=== PATIENT | female | born 1960 | race Caucasian/White ===

== ENCOUNTER 2016-07-13 07:56 | Emergency (ER) | payer OTHER ==
[~2016-07-13] VITALS: Ht 157.5 cm; Wt 65.0 kg
[~2016-07-13 07:56] MED LIST: BECL8.7A INH
[2016-07-13 08:00] VITALS: Ht 157.5 cm; Wt 65.0 kg
[2016-07-13] MEDS ORDERED: KETOROLAC 30 MG INJ IM STA (08:24)
--- NOTE | 2016-07-13 08:59 | RADRPT ---
PROCEDURE: XR right hip. CLINICAL INDICATION: Hip pain TECHNIQUE: AP and lateral views available for review. COMPARISON: Pelvis 05/19/2014 FINDINGS: The osseous structures are normal in mineralization, architecture and alignment. No fractures are i dentified. No osseous lesions are identified. The joints are unremarkable. There is an 8 x 4 mm c alcification lateral to the greater trochanter (dystrophic/calcific bursitis). IMPRESSION: 8 x 4 mm calcification lateral to the greater trochanter (dystrophic calcification/calcific bursitis ) Otherwise unremarkable examination RPTAT: HGDB .Giovany Dominguez MD, Date Time Electronically viewed and signed by .Giovany Dominguez MD, on 07/13/2016 08:58 .B/
--- NOTE | 2016-07-13 10:11 | ERD ---
ER Documentation Chief Complaint Date/Time DATE: 07/13/16 TIME: 10:05 Chief Complaint SEVERE LEG CRAMPS STARTED THIS AM FROM LEFT HIP DOWN HPI This is a 56-year-old female presenting to the emergency department for left hip pain starting today. Patient states she has tenderness to left hip and left thigh area. No redness, warmth, laceration or ecchymosis. Patient states she was lifting heavy boxes 2 days ago but did not notice pain until today. No fevers or chills. Did not take any medications at home. ROS All systems reviewed and are negative except as per history of present illness. Medications Home Meds Active Scripts Hydrocodone/Acetaminophen (Soper 5-325 Tablet) 1 Each Tablet, 1 TAB PO Q6H Y for PAIN, #7 TAB Prov:MATHIEU PEREZ NP 07/13/16 Ibuprofen* (Motrin*) 600 Mg Tab, 600 MG PO Q6, #20 TAB Prov:MATHIEU PEREZ NP 07/13/16 Reported Medications Beclomethasone Dip* (Qvar 40*) 7.3 Gm Inha, 1 PUFF INH BID, INH 05/19/14 Allergies Allergies: Coded Allergies: Penicillins (Verified Allergy, Unknown, 07/13/16) PMhx/Soc History of Surgery: Yes (BTL) Anesthesia Reaction: No Hx Neurological Disorder: No Hx Respiratory Disorders: Yes (ASTHMA) Hx Cardiac Disorders: Yes (hypotension) Hx Psychiatric Problems: No Hx Miscellaneous Medical Probl: No Hx Alcohol Use: No Hx Substance Use: No Hx Tobacco Use: No Smoking Status: Never smoker Physical Exam Vitals Vital Signs Date Time Temp Pulse Resp B/P Pulse Ox O2 Delivery O2 Flow Rate FiO2 07/13/16 08:00 98.0 89 18 111/55 98 Physical Exam Const: No acute distress, alert Head: Atraumatic Eyes: Normal Conjunctiva ENT: Normal External Ears, Nose and Mouth. Neck: Full range of motion..~ No meningismus. Resp: Clear to auscultation bilaterally Cardio: Regular rate and rhythm, no murmurs Abd: Soft, non tender, non distended. Normal bowel sounds Skin: No petechiae or rashes Back: No midline or flank tenderness Ext: Tenderness to left greater trochanter, negative left straight leg raise Neur: Awake and alert Psych: Normal Mood and Affect Results 24 hrs Current Medications Medications (Trade) Dose Ordered Sig/Yumiko Route PRN Reason Start Time Stop Time Status Last Admin Dose Admin Ketorolac Tromethamine (Toradol) 30 mg ONCE STAT IM 07/13/16 08:24 07/13/16 08:25 DC 07/13/16 08:33 Acetaminophen/ Hydrocodone Bitart (Soper (5/325)) 1 tab ONCE ONCE PO 07/13/16 11:00 07/13/16 11:00 DC 07/13/16 10:38 Procedures/MDM Patient: SHILPA LAND : 1960 Age: 56 Sex: F MR #: [id number] DOS: 07/13/16 0824 Ordering MD: MATHIEU PEREZ NP Location: [facility] Room/Bed: PROCEDURE: XR right hip. CLINICAL INDICATION: Hip pain TECHNIQUE: AP and lateral views available for review. COMPARISON: Pelvis 05/19/2014 FINDINGS: The osseous structures are normal in mineralization, architecture and alignment. No fractures are identified. No osseous lesions are identified. The joints are unremarkable. There is an 8 x 4 mm calcification lateral to the greater trochanter (dystrophic/calcific bursitis). IMPRESSION: 8 x 4 mm calcification lateral to the greater trochanter (dystrophic calcification/calcific bursitis) Otherwise unremarkable examination MDM: 56-year-old female presents emergency department for left hip pain that started today. Patient was lifting heavy boxes 2 days ago and states she noticed pain today. No fevers or chills. Area is without erythema, warmth, laceration or drainage. X-ray left hip reviewed by radiologist as 8 x 4 mm calcification lateral to the greater trochanter otherwise unremarkable. Patient given Toradol while in the ED. Upon reassessment, patient states pain continues. Consulted Dr. Quarles who also examined patient and patient's xrays. We agree that patient is appropriate for outpatient management. Differential diagnosis includes but not limited to trochanteric bursitis, osteoarthritis, rheumatoid arthritis, muscle strain or sprain. Low suspicion for acute dislocation or fracture. Patient is appropriate for outpatient management and will be given prescription for ibuprofen and Soper. Instructed patient to follow-up with primary care provider or orthopedic physician in the next 2-3 days for reassessment. Return to ED for any high fever, chest pain, difficulty breathing, shortness breath, wheezing, vomiting, diarrhea, abdominal pain or any new or worsening symptoms. Patient verbalizes understanding. All questions answered at discharge. Finnish translation used during this encounter. Departure Diagnosis: Primary Impression: Bursitis Bursitis location: hip Hip bursitis location: unspecified Laterality: left Qualified Code: M70.72 - Bursitis of left hip, unspecified bursa Condition: MATHIEU Johnston NP Jul 13, 2016 10:11
[2016-07-13] MEDS ORDERED: IBUP-1542 PO (10:12)
[2016-07-13] MEDS ORDERED: HYDR-906 PO (10:12)
[2016-07-13] MEDS ORDERED: HYDROCODONE/APAP (5/325) TAB PO ONE (11:00)
== END 2016-07-13 10:46 | disposition home or self-care (01) ==
LOC: FTE 07:56
DX: M70.72 Other bursitis of hip, left hip (principal); J45.909 Unspecified asthma, uncomplicated; Y93.89 Activity, other specified
CPT/HCPCS: 73510; J1885; Z7610; 96372

== ENCOUNTER 2016-12-05 19:03 | Emergency (ER) | payer OTHER ==
[~2016-12-05] VITALS: Ht 162.6 cm; Wt 62.0 kg
[~2016-12-05 19:03] MED LIST changes: +HYDR-906 PO; +IBUP-1542 PO
[2016-12-05 19:11] VITALS: Ht 162.6 cm; Wt 62.0 kg
--- NOTE | 2016-12-05 20:55 | ERD ---
ER Documentation Chief Complaint Chief Complaint right thumb abscess HPI This is a 56-year-old female presents emergency department today complaining of right thumb pain and concern for an abscess after using nail clippers and cutting her nails too short. Denies any fevers or chills, previous trauma. ROS All systems reviewed and are negative except as per history of present illness. Medications Home Meds Active Scripts Ibuprofen* (Motrin*) 600 Mg Tab, 600 MG PO Q6, #30 TAB Prov:AMADOR NORIEGA PA-C 12/05/16 Neomycin Colby/Bacitrac Zn/Poly (Triple Antibiotic Ointment) 1 Each Oint.pack, 1 EACH TP BID for 7 Days Prov:AMADOR NORIEGA PA-C 12/05/16 Sulfamethoxazole/Trimethoprim* (Bactrim Ds* Tablet) 1 Each Tablet, 1 TAB PO BID for 7 Days, #14 TAB Prov:AMADOR NORIEGA PA-C 12/05/16 Hydrocodone/Acetaminophen ([place] 5-325 Tablet) 1 Each Tablet, 1 TAB PO Q6H Y for PAIN, #7 TAB Prov:MATHIEU PEREZ NP 07/13/16 Ibuprofen* (Motrin*) 600 Mg Tab, 600 MG PO Q6, #20 TAB Prov:MATHIUE PEREZ NP 07/13/16 Reported Medications Beclomethasone Dip* (Qvar 40*) 7.3 Gm Inha, 1 PUFF INH BID, INH 05/19/14 Allergies Allergies: Coded Allergies: Penicillins (Verified Allergy, Unknown, 07/13/16) PMhx/Soc History of Surgery: Yes (BTL) Anesthesia Reaction: No Hx Neurological Disorder: No Hx Respiratory Disorders: Yes (ASTHMA) Hx Cardiac Disorders: Yes (hypotension) Hx Psychiatric Problems: No Hx Miscellaneous Medical Probl: No Hx Alcohol Use: No Hx Substance Use: No Hx Tobacco Use: No Smoking Status: Never smoker Physical Exam Vitals Vital Signs Date Time Temp Pulse Resp B/P Pulse Ox O2 Delivery O2 Flow Rate FiO2 12/05/16 19:11 97.8 81 20 106/65 98 Physical Exam Const: NAD Head: Atraumatic Eyes: Normal Conjunctiva ENT: Normal External Ears, Nose and Mouth. Neck: Full range of motion..~ No meningismus. Resp: Clear to auscultation bilaterally Cardio: Regular rate and rhythm, no murmurs Abd: Soft, non tender, non distended. Normal bowel sounds Skin: Right thumb with evidence of small pocket of pustular fluid subungual Back: No midline or flank tenderness Ext: Right thumb with no obvious deformity. No effusion. No ecchymosis. Full active range of motion. Mild tenderness to palpation with evidence of small pocket of pustular fluid subungual Neur: Awake and alert Psych: Normal Mood and Affect Procedures/MDM This a 56-year-old right-handed female who presents the emergency department today complaining of right thumb pain and concern for a "abscess". On physical exam patient has evidence of a very small pocket of some pustular fluid that is subungual small abscess. No evidence of felon at this time. No evidence of paronychia.. I did explain to the patient that we could use a small needle to open up the area to allow the drainage to occur. I explained the risks and benefits of the procedure and the patient agreed to proceed. The area was cleaned in the usual sterile fashion. An 18-gauge needle was used to drain the area. Patient tolerated the procedure well. Patient is afebrile and otherwise well-appearing. Low suspicion for sepsis, cellulitis, deep space tracking infection. She has full active range of motion and denies any trauma and I have low suspicion for acute fracture dislocation. She will be given a prescription for Motrin, Bactrim and triple antibiotic ointment. She may return in 48 hours for wound check if there is worsening of symptoms or no improvement in symptoms. At this time the patient is stable for discharge and outpatient management. Patient should follow up with their PCP in the next 1-2 days. They may return to the emergency department sooner for any persistent or worsening of symptoms. Patient understood and agreed with the plan. Departure Diagnosis: Primary Impression: Abscess Condition: Fair AMADOR NORIEGA PA-C Dec 05, 2016 20:55
[2016-12-05] MEDS ORDERED: SULF1TAB31 PO (21:43)
[2016-12-05] MEDS ORDERED: NEOM1PAC TP (21:43)
[2016-12-05] MEDS ORDERED: IBUP-1542 PO (21:44)
== END 2016-12-05 22:16 | disposition home or self-care (01) ==
LOC: FTE 19:03
DX: L02.511 Cutaneous abscess of right hand (principal); J45.909 Unspecified asthma, uncomplicated
CPT/HCPCS: 26010; Z7502

== ENCOUNTER 2018-06-04 13:45 | Emergency (ER) | payer OTHER ==
[~2018-06-04] VITALS: Wt 65.5 kg
[~2018-06-04 13:45] MED LIST changes: +HYDR-4011 PO; -HYDR-906 PO; +NEOM1PAC TP; +SULF1TAB31 PO
[2018-06-04 14:30] VITALS: BP 117/56; PULSE 87; RESP 20
[2018-06-04] MEDS ORDERED: AZIT250T PO (17:20)
[2018-06-04] MEDS ORDERED: LORA10CA PO (17:20)
[2018-06-04] MEDS ORDERED: BENZ200C68 PO (17:20)
[2018-06-04] MEDS ORDERED: ALBU18HF INHALATION (17:20)
--- NOTE | 2018-06-04 17:42 | ERD ---
ER Documentation Chief Complaint Chief Complaint c/o flu like symptoms x3 days HPI This patient is a 58-year-old female with past medical history of asthma brought in by her daughter who is assisting with translation from [place]ian to Greenlandic complaining of intermittent cough for the past 3 days. Cough is productive in nature. Associated symptoms include tactile fevers. Advil alleviates symptoms at home. Patient is also been using her Ventolin inhaler with relief. Symptoms are moderate in severity. Symptoms are worse at night. Patient denies any chest pain, significant shortness of breath, nausea, vomiting, diarrhea, or other symptoms at this time. ROS All systems reviewed and are negative except as per history of present illness. Medications Home Meds Active Scripts Loratadine* (Claritin*) 10 Mg Capsule, 10 MG PO DAILY, #30 CAP Prov:JANELLE LUTZ PA-C 06/04/18 Benzonatate* (Benzonatate*) 200 Mg Capsule, 200 MG PO TID PRN for COUGH, #20 CAP Prov:JANELLE LUTZ PA-C 06/04/18 Albuterol Sulfate* (Ventolin HFA*) 18 Gm Hfa.aer.ad, 2 PUFF INHALATION Q4H, #1 INHALER Prov:JANELLE LUTZ PA-C 06/04/18 Azithromycin* (Zithromax*) 250 Mg Tablet, 250 MG PO .ZPACK DIRECTED, #6 TAB TAKE 500 MG (2 TABS) THE FIRST DAY THEN 250 MG (1 TAB) DAYS 2-5 Prov:JANELLE LUTZ PA-C 06/04/18 Ibuprofen* (Motrin*) 600 Mg Tab, 600 MG PO Q6, #30 TAB Prov:AMADOR NORIEGA PA-C 12/05/16 Neomycin Colby/Bacitrac Zn/Poly (Triple Antibiotic Ointment) 1 Each Oint.pack, 1 EACH TP BID for 7 Days Prov:AMADOR NORIEGA PA-C 12/05/16 Sulfamethoxazole/Trimethoprim* (Bactrim Ds* Tablet) 1 Each Tablet, 1 TAB PO BID for 7 Days, #14 TAB Prov:AMADOR NORIEGA PA-C 12/05/16 Hydrocodone/Acetaminophen ([place] 5-325 Tablet) 1 Each Tablet, 1 TAB PO Q6H PRN for PAIN, #7 TAB Prov:MATHIEU PEREZ DRILL OPERATOR PNEUMATIC 07/13/16 Ibuprofen* (Motrin*) 600 Mg Tab, 600 MG PO Q6, #20 TAB Prov:MATHIEU PEREZ DRILL OPERATOR PNEUMATIC 07/13/16 Reported Medications Beclomethasone Dip* (Qvar 40*) 7.3 Gm Inha, 1 PUFF INH BID, INH 05/19/14 Allergies Allergies: Coded Allergies: Penicillins (Verified Allergy, Unknown, 07/13/16) PMhx/Soc History of Surgery: Yes (BTL) Anesthesia Reaction: No Hx Neurological Disorder: No Hx Respiratory Disorders: Yes (ASTHMA) Hx Cardiac Disorders: Yes (hypotension) Hx Psychiatric Problems: No Hx Miscellaneous Medical Probl: No Hx Alcohol Use: No Hx Substance Use: No Hx Tobacco Use: No Smoking Status: Never smoker FmHx Family History: No diabetes Physical Exam Vitals Vital Signs Date Temp Pulse Resp B/P (MAP) Pulse Ox O2 O2 Flow FiO2 Time Delivery Rate 06/04/18 98.7 87 20 117/56 98 14:30 (76) Physical Exam Const: No acute distress Head: Atraumatic Eyes: Normal Conjunctiva ENT: Normal External Ears, Nose and Mouth. Posterior pharynx is clear. There is no tonsillar hypertrophy or exudates noted. No erythema to the posterior pharynx. Uvula is midline. Neck: Full range of motion. No meningismus. Resp: Mild inspiratory rhonchi noted to bilateral upper lung anne. No crackles. No respiratory distress. Cardio: Regular rate and rhythm, no murmurs Skin: No petechiae or rashes Back: No midline or flank tenderness Ext: No cyanosis, or edema Neur: Awake and alert Psych: Normal Mood and Affect Procedures/MDM 58-year-old female presenting to the emergency department with signs and symptoms most consistent with acute bronchitis, with possible bacterial etiology. No evidence of pneumonia, sepsis, meningitis, or other emergencies. Patient is not in respiratory distress. I doubt pulmonary embolism. Patient is nontoxic and well-appearing. Vital signs are stable. She is appropriate for discharge and further outpatient management with prescriptions. The patient agreed with the diagnosis, plan, need for follow-up, return precautions. Departure Diagnosis: Primary Impression: Acute bronchitis Bronchitis organism: unspecified organism Qualified Codes: J20.9 - Acute bronchitis, unspecified Condition: Fair Patient Instructions: Bronchitis, Antiobiotic Treatment (Adult) Referrals[facility] Usted se dockery hecho un examen mdico de control que le indica que no est en batsheva condicin que requiera tratamiento urgente en el Departamento de Emergencia. Un estudio ms profundo y el tratamiento de colby condicin pueden esperar sin ningn riesgo hasta que usted sea atendida/o en el consultorio de colby mdico o batsheva clnica. Es responsabilidad suya arreglar batsheva yanely para el seguimiento del constance. MANEJO DE CONDICIONES NO URGENTES EN EL FUTURO 1) Si usted tiene un mdico de atencin primaria: Usted debera llamar a colby mdico de atencin primaria antes de venir al departamento de emergencia. Despus de las horas de consultorio, colby doctor o colby asociado/a est disponible por telfono. El mdico o enfermero de elen en el servicio telefnico puede asesorarle por guanakito medio para atender el problema, o constance contrario se puede programar bathseva yanely. 2) Si usted no tiene un mdico de atencin primaria: Llame al mdico o clnica de referencia que aparece abajo blanca las horas de consultorio para hacer batsheva yanely para que le vean. CLINICAS: [facility] [phone] [facility] [phone] [facility] [phone] [facility]. [facility] [phone] [facility]. [place] [phone] [facility]. [phone] [address] Additional Instructions: Llame al doctor MAANA y ez batsheva YANELY PARA DENTRO DE 1-2 CURIEL.Dgale a la secretaria que nosotros le instruimos hacer esta yanely.Avise o llame si colby cond icin se empeora antes de la yanely. Regresa aqui si peor o no mejor. JANELLE LUTZ PA-C Jun 04, 2018 17:42
== END 2018-06-04 17:40 | disposition home or self-care (01) ==
LOC: FTE 13:45
DX: J20.9 Acute bronchitis, unspecified (principal); J45.909 Unspecified asthma, uncomplicated
CPT/HCPCS: 99283

== ENCOUNTER 2018-06-06 22:17 | Emergency (ER) | payer OTHER ==
[~2018-06-06] VITALS: Ht 154.9 cm; Wt 66.3 kg
[~2018-06-06 22:17] MED LIST changes: +ALBU18HF INHALATION; +AZIT250T PO; +BENZ200C68 PO; +LORA10CA PO
[2018-06-06 22:35] VITALS: Ht 154.9 cm; Wt 66.3 kg
[2018-06-07 03:10] VITALS: BP 108/60; PULSE 73; RESP 16
[2018-06-07] MEDS ORDERED: DEXAMETHASONE 10 MG/ML 1 ML INJ IM ONE (04:30)
--- NOTE | 2018-06-07 04:46 | ERD ---
ER Documentation Chief Complaint Chief Complaint COUGH X FRIDAY. HPI This is a 58-year-old female with a past medical history of asthma who is presenting with a persistent cough. The patient reports approximately 1 week with a persistent nonproductive cough, feeling generally unwell with occasional fevers. The patient was evaluated 3 days ago and diagnosed with bronchitis. She was started on azithromycin and given prescriptions for albuterol, Tessalon Perles and Claritin. The patient reports that despite compliance with this regimen, the patient's cough has persisted. The patient also reports a sore throat. The patient does not endorse any alleviating or exacerbating factors. The patient has had no headache or vision changes. The patient does not endorse neck or back pain. The patient denies lightheadedness or dizziness. The patient has had no chest pain or trouble breathing. The patient denies nausea or vomiting. The patient denies abdominal pain. The patient denies changes to bowel movements or urination. The patient has had no focal deficits. The patient has had no weakness or numbness or tingling to the face or extremities. ROS All systems reviewed and are negative except as per history of present illness. Medications Home Meds Active Scripts Loratadine* (Claritin*) 10 Mg Capsule, 10 MG PO DAILY, #30 CAP Prov:JANELLE LUTZ PA-C 06/04/18 Benzonatate* (Benzonatate*) 200 Mg Capsule, 200 MG PO TID PRN for COUGH, #20 CAP Prov:JANELLE LUTZ PA-C 06/04/18 Albuterol Sulfate* (Ventolin HFA*) 18 Gm Hfa.aer.ad, 2 PUFF INHALATION Q4H, #1 INHALER Prov:JANELLE LUTZ PA-C 06/04/18 Azithromycin* (Zithromax*) 250 Mg Tablet, 250 MG PO .ZPACK DIRECTED, #6 TAB TAKE 500 MG (2 TABS) THE FIRST DAY THEN 250 MG (1 TAB) DAYS 2-5 Prov:JANELLE LUTZ PA-C 06/04/18 Ibuprofen* (Motrin*) 600 Mg Tab, 600 MG PO Q6, #30 TAB Prov:AMADOR NORIEGA PA-C 12/05/16 Neomycin Col[place]/Bacitrac Zn/Poly (Triple Antibiotic Ointment) 1 Each Oint.pack, 1 EACH TP BID for 7 Days Prov:LEANNAMADOR Ace PA-C 12/05/16 Sulfamethoxazole/Trimethoprim* (Bactrim Ds* Tablet) 1 Each Tablet, 1 TAB PO BID for 7 Days, #14 TAB Prov:AMADOR NORIEGA Db TIRADO 12/05/16 Hydrocodone/Acetaminophen ([place] 5-325 Tablet) 1 Each Tablet, 1 TAB PO Q6H PRN for PAIN, #7 TAB Prov:MATHIEU PEREZ NP 07/13/16 Ibuprofen* (Motrin*) 600 Mg Tab, 600 MG PO Q6, #20 TAB Prov:MATHIEU PEREZ NP 07/13/16 Reported Medications Beclomethasone Dip* (Qvar 40*) 7.3 Gm Inha, 1 PUFF INH BID, INH 05/19/14 Allergies Allergies: Coded Allergies: Penicillins (Verified Allergy, Unknown, 07/13/16) PMhx/Soc History of Surgery: Yes (BTL) Anesthesia Reaction: No Hx Neurological Disorder: No Hx Respiratory Disorders: Yes (ASTHMA) Hx Cardiac Disorders: Yes (hypotension) Hx Psychiatric Problems: No Hx Miscellaneous Medical Probl: No Hx Alcohol Use: No Hx Substance Use: No Hx Tobacco Use: No Smoking Status: Never smoker FmHx Family History: No diabetes Physical Exam Vitals Vital Signs Date Temp Pulse Resp B/P (MAP) Pulse Ox O2 O2 Flow FiO2 Time Delivery Rate 06/07/18 97.8 73 16 108/60 99 Room Air 03:10 (76) 06/06/18 97.6 84 18 120/78 99 22:35 (92) Physical Exam Const: No apparent distress, well-developed, well-nourished Head: Normocephalic, Atraumatic Eyes: Normal Conjunctiva. Extraocular movements intact. Pupils equal, round and reactive to light ENT: Normal External Ears, Nose and Mouth. Neck: Full range of motion. No meningismus. Resp: Clear to auscultation bilaterally, No wheezes, rales or rhonchi Cardio: Regular rate and rhythm. No murmurs, rubs or gallops Abd: Soft, non tender, non distended. Normal bowel sounds Skin: No petechiae or rashes Back: No midline tenderness. No CVA tenderness Ext: No cyanosis, or edema Neur: Awake and alert, oriented 4. Cranial nerves intact. No facial droop. Normal strength, sensation and coordination. Psych: Normal Mood and Affect Results 24 hrs Current Medications Medications Dose Sig/Yumiko Start Time Status Last (Trade) Ordered Route PRN Stop Time Admin Dose Reason Admin 10 mg ONCE ONCE 06/07/18 DC Dexamethasone IM 04:30 (Decadron) 06/07/18 04:32 Procedures/MDM MDM The patient's presentation warrants further investigation. Previous medical records, if available, were reviewed. IMAGING Imaging and Radiology interpretation reviewed. CXR 1V Interpreted by me Soft Tissue: No acute abnormalities Bones: No acute abnormalities Mediastinum/Cardiac Silhouette: Unremarkable. No widened mediastinum. Lungs: No acute abnormalities. Normal pulmonary vasculature. No pneumothorax. No pulmonary edema. Clear costal diaphragmatic angles. No pleural effusions. No opacity or consolidations concerning for pneumonia. TREATMENT/DISPOSITION The patient presents with symptoms most consistent with an upper respiratory infection. Bronchitis is certainly a possibility, I do feel that the patient may continue her azithromycin to completion. I do feel that the regimen previously prescribed is appropriate. The patient will be given a dose of Decadron in the emergency department to help with her cough and sore throat. The patient has no lymphadenopathy. She has no tonsillar exudate. She is afebrile. She has a cough. I do not suspect strep throat and I do not feel the patient requires further evaluation of this. The patient's symptoms are likely to be self-limited. DISCHARGE Upon reevaluation of the patient, symptoms have improved. No emergent diagnoses were identified. At this time, I feel that the patient stable for discharge. The patient was instructed to follow-up with a primary care physician in 1-3 days. The patient will be given strict precautions with which to return to the emergency department. Prescriptions: None, patient will need to continue with her previously prescribed regimen The patient's blood pressure was elevated at greater than 120/80 while in the e mergency department. The patient was otherwise stable with no evidence of hypertensive urgency or emergency. The patient does not require admission for blood pressure control. I have discussed with the patient the risks of hypertension. I have instructed the patient to return to the ER for any new or worsening symptoms including chest pain, shortness of breath, headache, blurred vision, confusion, nausea, vomiting or LOC. I have advised the patient to follow up with the primary care physician for outpatient monitoring and treatment for hypertension in 1-3 days. Disclaimer: Inadvertent spelling and grammatical errors are likely due to EHR/dictation software use and do not reflect on the overall quality of patient care. Note that the electronic time recorded on this note does not necessarily reflect the actual time of the patient encounter. Departure Diagnosis: Primary Impression: Upper respiratory infection URI type: unspecified URI Qualified Codes: J06.9 - Acute upper respiratory infection, unspecified Additional Impressions: Cough Sore throat Condition: Stable Patient Instructions: Cough, Chronic, Uncertain Cause, (Adult), When You Have a Sore Throat Additional Instructions: Thank you for for coming to [facility] for your care today. Please ask your nurse or provider if you have questions about your care today and do not leave until all your questions have been answered. Please use any medications given as directed and follow-up with your doctor (or the doctor you were referred to) in the next 1-3 days. If you do not have a primary care doctor you may follow up at the [facility] or [facility] (listed below). You may also use motrin and tylenol as needed for fever and/or pain unless instructed otherwise by your provider or nurse. Indications for more urgent follow-up have been discussed, but you may return to the Emergency Department at ANY time for any worrisome or worsening symptoms. If you have abdominal pain, please know that no test or exam you received is perfect and you should follow up within 8 hours for continued pain. If you had any imaging studies today, such as an X-Ray or CT Scan, these studies will be reviewed later by a radiologist. You will be called if there are important findings that were not identified today, so make sure the contact information you provided at registration is correct. If you received any narcotic pain control medicine today, such as Vicodin, Morphine or Dilaudid, your coordination and judgment may be affected for a number of hours. Please do not drive or operate heavy machinery, and you may want someone to assist you at home. If you were given a prescription for narcotic medication, be aware that it is very addictive- use sparingly and only if necessary. PLEASE SEEK FURTHER EVALUATION AND MANAGEMENT AT YOUR DOCTORS OFFICE WITHIN THE NEXT 1-3 DAYS. IT IS YOUR RESPONSIBILITY TO MAKE AN APPOINTMENT FOR FOLOW-UP CARE. IF YOU HAVE A PRIMARY DOCTOR, PLEASE CALL THEIR OFFICE TO SCHEDULE AN APPOINTMENT FOR FOLLOW UP. IF YOU DO NOT HAVE A PRIMARY DOCTOR YOU CAN CALL OUR PHYSICIAN REFERRAL HOTLINE AT IF YOU CAN NOT AFFORD TO SEE A PHYSICIAN YOU CAN CHOSE FROM THE FOLLOWING [facility] CLINICS: [facility] [address] [facility] [address] [facility]. [facility] [address] [facility] [address] [facility] [address] [facility]. [facility]. [address] YVETTE URIAS MD Jun 07, 2018 04:46
== END 2018-06-07 04:54 | disposition home or self-care (01) ==
LOC: E/R 22:17
DX: J06.9 Acute upper respiratory infection, unspecified (principal); J45.909 Unspecified asthma, uncomplicated
CPT/HCPCS: 71045; 96372; J1100; Z7502